=== PATIENT | male | born 1985 | race Caucasian/White ===

== ENCOUNTER 2018-06-15 16:49 | Emergency (ER) | payer MEDICARE, MEDICAID ==
[~2018-06-15] VITALS: Ht 180.3 cm; Wt 90.9 kg
[~2018-06-15 16:49] MED LIST: CLON2TAB PO; LAMO150T2 PO; PALI117D IM; TRIH2TAB3 PO
[2018-06-15 17:52] LABS: CLARITY,URINE CLEAR (Clear); COLOR,URINE STRAW (Yellow); GLUCOSE, URINE NEGATIVE (Neg); KETONES,URINE NEGATIVE (Neg); LEUKOCYTE ESTERASE ,URINE NEGATIVE (Neg); NITRITES, URINE NEGATIVE (Neg); OCCULT BLOOD,URINE NEGATIVE (Neg); PH,URINE 7.5 (4.8-8.0); PROTEIN,URINE NEGATIVE (Neg); UROBILINOGEN,URINE 0.2 E.U/dL (0.2-1.0)
[2018-06-15 17:57] LABS: UA COLLECTION TYPE CLN CATCH MIDSTREAM
[2018-06-15 18:04] LABS: URINE AMPHETAMINE SCREEN NEGATIVE (Neg); URINE BARBITUATE SCREEN NEGATIVE (Neg); URINE BENZODIAZEPINES SCREEN NEGATIVE (Neg); URINE CANNABINOID SCREEN POSITIVE (Neg); URINE COCAINE SCREEN NEGATIVE (Neg); URINE METHADONE SCREEN NEGATIVE (Neg); URINE OPIATE SCREEN NEGATIVE (Neg); URINE PHENCYCLIDINE SCREEN NEGATIVE (Neg)
[2018-06-15 19:28] LABS: BASOPHILS % (AUTO) 0.4 % (0-1); EOSINOPHILS % (AUTO) 0.4 % (0-6); HEMATOCRIT 41.9 % (42.0-52.0); HEMOGLOBIN 14.3 g/dl (14.0-17.9); LYMPHOCYTES # (AUTO) 1.4 X10'3 (1.1-4.8); LYMPHOCYTES % (AUTO) 24.4 % (21-51); MEAN CORPUSCULAR HEMOGLOBIN 30.7 PG (27.0-31.0); MEAN CORPUSCULAR HGB CONC 34.2 % (33.0-36.5); MEAN CORPUSCULAR VOLUME 89.7 FL (78-98); MEAN PLATELET VOLUME 8.8 FL (7.4-10.4); MONOCYTES # (AUTO) 0.3 X10'3 (0-0.9); MONOCYTES % (AUTO) 5.3 % (2-12); NEUTROPHILS % (AUTO) 69.5 % (42-75); PLATELET COUNT 202 X10'3 (140-440); RED BLOOD COUNT 4.67 X10'6 (4.70-6.10); RED CELL DISTRIBUTION WIDTH 13.4 % (11.5-14.5); WHITE BLOOD COUNT 5.8 X10'3 (4.5-11.0)
[2018-06-15 19:45] LABS: ALANINE AMINOTRANSFERASE 41 U/L (12-78); ALBUMIN 3.7 G/DL (3.4-5.0); ALBUMIN/GLOBULIN RATIO 1.3 (1.1-1.5); ALKALINE PHOSPHATASE 68 IU/L (46-116); ANION GAP 7 (8-16); ASPARTATE AMINO TRANSFERASE 25 U/L (10-37); BILIRUBIN,TOTAL 0.3 MG/DL (0.1-1.0); BLOOD UREA NITROGEN 6 MG/DL (7-18); BUN/CREATININE RATIO 5.6 (5.4-32.0); CALCIUM 8.8 MG/DL (8.5-10.1); CHLORIDE 107 MMOL/L (99-107); CREATININE 1.08 MG/DL (0.60-1.10); GLUCOSE 98 MG/DL (70-104); POTASSIUM 3.5 MMOL/L (3.5-5.1); SODIUM 142 MMOL/L (135-145); TOTAL CARBON DIOXIDE 27.7 MMOL/L (24-32); TOTAL PROTEIN 6.5 G/DL (6.4-8.2); eGFR 79 ML/MIN
[2018-06-15 19:53] LABS: ETHANOL < 0.010 GM/DL (0.0-0.010)
[2018-06-15] MEDS: clonazePAM 1mg tablet PO SCH (21:16)
[2018-06-15] MEDS ORDERED: potassium Cl 20 mEq SR tablet PO STA (23:23)
[2018-06-16 03:19] LABS: ALBUMIN 3.6 G/DL (3.4-5.0); ANION GAP 10 (8-16); BLOOD UREA NITROGEN 8 MG/DL (7-18); BUN/CREATININE RATIO 7.1 (5.4-32.0); CALCIUM 8.8 MG/DL (8.5-10.1); CHLORIDE 107 MMOL/L (99-107); CREATININE 1.12 MG/DL (0.60-1.10); GLUCOSE 91 MG/DL (70-104); POTASSIUM 3.9 MMOL/L (3.5-5.1); SODIUM 142 MMOL/L (135-145); TOTAL CARBON DIOXIDE 25.4 MMOL/L (24-32); eGFR 76 ML/MIN
[2018-06-16] MEDS: lamoTRIgine 100mg tablet PO SCH (08:11)
[2018-06-16] MEDS: trihexyphenidyl 2mg tablet PO SCH ×2 (08:11→20:44)
[2018-06-16] MEDS: nicotine 7mg patch - 24hr TD SCH (16:00)
[2018-06-16] MEDS: clonazePAM 1mg tablet PO SCH (20:44)
[2018-06-17 05:42] VITALS: BP 133/89
[2018-06-17] MEDS ORDERED: traZODone 50mg tablet PO PRN (06:15)
[2018-06-17] MEDS: trihexyphenidyl 2mg tablet PO SCH (08:17)
[2018-06-17] MEDS: lamoTRIgine 100mg tablet PO SCH (08:18)
[2018-06-17] MEDS: nicotine 7mg patch - 24hr TD SCH (08:20)
[2018-06-17] MEDS ORDERED: CLON-515 PO (13:51)
[2018-06-17] MEDS ORDERED: PALI234D IM (13:51)
[2018-06-17] MEDS ORDERED: TRIH2TAB3 PO (13:51)
[2018-06-17] MEDS ORDERED: PALI9TAB PO (14:17)
== END 2018-06-17 13:05 ==
LOC: ER 16:49
DX: F32.9 Major depressive disorder, single episode, unspecified (principal); F41.9 Anxiety disorder, unspecified; G89.29 Other chronic pain; M54.9 Dorsalgia, unspecified; Z88.0 Allergy status to penicillin
CPT/HCPCS: 36415; 80048; 80053; 80305; 80320; 81003; 84443; 85025; 99285

== ENCOUNTER 2018-06-17 11:21 | Inpatient (IN) | payer MEDICARE, MEDICAID ==
[~2018-06-17] VITALS: Ht 180.3 cm; Wt 93.5 kg
[2018-06-17] MEDS ORDERED: CLON-515 PO (13:51)
[2018-06-17] MEDS ORDERED: TRIH2TAB3 PO (13:51)
[2018-06-17] MEDS ORDERED: PALI234D IM (13:51)
[2018-06-17] MEDS ORDERED: PALI9TAB PO (14:17)
[2018-06-17 16:38] VITALS: BP 133/82
[2018-06-17] MEDS ORDERED: magnesium hydroxide 30ml (MOM) UD suspension PO PRN (17:55)
[2018-06-17] MEDS: nicotine 7mg patch - 24hr TD SCH (18:04)
[2018-06-17 19:59] VITALS: BP 133/85
[2018-06-17] MEDS ORDERED: clonazePAM 1mg tablet PO ONE (20:50)
[2018-06-17] MEDS ORDERED: traZODone 50mg tablet PO ONE (21:00)
[2018-06-17] MEDS ORDERED: traZODone 50mg tablet PO SCH (21:00)
[2018-06-17] MEDS ORDERED: clonazePAM 1mg tablet PO SCH (21:00)
[2018-06-17] MEDS: trihexyphenidyl HCL 5 MG tablet PO SCH (21:20)
[2018-06-17] MEDS: acetaminophen 325mg tablet PO PRN (21:27)
[2018-06-18 07:42] LABS: CHOL/HDL RATIO 4.2 (0.00-4.99); CHOLESTEROL 174 MG/DL (0-200); HDL CHOLESTEROL 41 MG/DL (35-60); LDL CHOLESTEROL 97 MG/DL (50-100); TRIGLYCERIDES 299 MG/DL (20-135)
[2018-06-18 08:00] VITALS: BP 109/64
[2018-06-18 08:02] LABS: HEMOGLOBIN A1C 5.2 % (4.5-6.2)
[2018-06-18] MEDS: lamoTRIgine 100mg tablet PO SCH (08:24)
[2018-06-18] MEDS: trihexyphenidyl HCL 5 MG tablet PO SCH ×3 (08:24→21:31)
[2018-06-18] MEDS: nicotine 7mg patch - 24hr TD SCH (10:10)
[2018-06-18 19:00] VITALS: BP 100/70
[2018-06-18] MEDS ORDERED: traZODone 50mg tablet PO SCH (21:00)
[2018-06-18] MEDS: clonazePAM 1mg tablet PO SCH (21:31)
[2018-06-18] MEDS: acetaminophen 325mg tablet PO PRN (21:33)
[2018-06-19] MEDS: lamoTRIgine 100mg tablet PO SCH (08:19)
[2018-06-19] MEDS: nicotine 7mg patch - 24hr TD SCH (08:19)
[2018-06-19] MEDS: trihexyphenidyl HCL 5 MG tablet PO SCH ×3 (08:20→20:23)
[2018-06-19 08:29] VITALS: BP 108/72
[2018-06-19 19:00] VITALS: BP 132/81
[2018-06-19] MEDS: clonazePAM 1mg tablet PO SCH (20:20)
[2018-06-19] MEDS: traZODone 150mg tablet PO SCH (20:20)
[2018-06-19] MEDS: acetaminophen 325mg tablet PO PRN (21:11)
[2018-06-20] MEDS: trihexyphenidyl HCL 5 MG tablet PO SCH ×3 (07:30→21:45)
[2018-06-20] MEDS: PALIPERIDONE 3 MG TAB.ER.24 PO SCH (07:30)
[2018-06-20] MEDS: nicotine 7mg patch - 24hr TD SCH (07:30)
[2018-06-20] MEDS: lamoTRIgine 100mg tablet PO SCH (07:30)
[2018-06-20 08:00] VITALS: BP 112/90
[2018-06-20] MEDS: acetaminophen 325mg tablet PO PRN (18:45)
[2018-06-20 19:00] VITALS: BP 131/89
[2018-06-20] MEDS: clonazePAM 1mg tablet PO SCH (21:44)
[2018-06-20] MEDS: traZODone 150mg tablet PO SCH (21:44)
[2018-06-21 08:00] VITALS: BP 108/64
[2018-06-21] MEDS: lamoTRIgine 100mg tablet PO SCH (08:22)
[2018-06-21] MEDS: PALIPERIDONE 3 MG TAB.ER.24 PO SCH (08:22)
[2018-06-21] MEDS: trihexyphenidyl HCL 5 MG tablet PO SCH ×3 (08:23→20:48)
[2018-06-21] MEDS: nicotine 7mg patch - 24hr TD SCH (08:27)
[2018-06-21 19:26] VITALS: BP 124/81
[2018-06-21] MEDS: traZODone 150mg tablet PO SCH (20:48)
[2018-06-21] MEDS: clonazePAM 1mg tablet PO SCH (20:48)
[2018-06-21] MEDS: acetaminophen 325mg tablet PO PRN (20:55)
[2018-06-22 08:00] VITALS: BP 112/70
[2018-06-22] MEDS: lamoTRIgine 100mg tablet PO SCH (08:16)
[2018-06-22] MEDS: PALIPERIDONE 3 MG TAB.ER.24 PO SCH (08:16)
[2018-06-22] MEDS: nicotine 7mg patch - 24hr TD SCH (08:17)
[2018-06-22] MEDS: trihexyphenidyl HCL 5 MG tablet PO SCH ×3 (08:17→21:21)
[2018-06-22 20:00] VITALS: BP 127/80
[2018-06-22] MEDS: traZODone 150mg tablet PO SCH (21:21)
[2018-06-22] MEDS: clonazePAM 1mg tablet PO SCH (21:21)
[2018-06-22] MEDS: mag hydrox/Alum hydrox/simeth 30ml oral suspension PO PRN (21:24)
[2018-06-23] MEDS ORDERED: temazepam 15mg capsule PO ONE ×2 (00:10→01:40)
[2018-06-23] MEDS: acetaminophen 325mg tablet PO PRN ×2 (01:41→22:58)
[2018-06-23 08:00] VITALS: BP 117/73
[2018-06-23] MEDS: PALIPERIDONE 3 MG TAB.ER.24 PO SCH (08:16)
[2018-06-23] MEDS: lamoTRIgine 100mg tablet PO SCH (08:16)
[2018-06-23] MEDS: trihexyphenidyl HCL 5 MG tablet PO SCH ×3 (08:17→20:29)
[2018-06-23] MEDS: nicotine 7mg patch - 24hr TD SCH (08:18)
[2018-06-23 20:11] VITALS: BP 121/69
[2018-06-23] MEDS: clonazePAM 1mg tablet PO SCH (20:30)
[2018-06-23] MEDS: traZODone 50mg tablet PO SCH (20:30)
[2018-06-23] MEDS ORDERED: lamoTRIgine 25mg tablet PO SCH (21:00)
[2018-06-23] MEDS: mag hydrox/Alum hydrox/simeth 30ml oral suspension PO PRN (23:00)
[2018-06-24 08:00] VITALS: BP 110/65
[2018-06-24] MEDS ORDERED: PALIPERIDONE 3 MG TAB.ER.24 PO SCH (08:00)
[2018-06-24] MEDS: trihexyphenidyl HCL 5 MG tablet PO SCH ×3 (08:10→21:13)
[2018-06-24] MEDS: lamoTRIgine 100mg tablet PO SCH ×2 (08:12→21:13)
[2018-06-24] MEDS: nicotine 7mg patch - 24hr TD SCH (08:15)
[2018-06-24 19:09] VITALS: BP 120/68
[2018-06-24] MEDS: PALIPERIDONE 3 MG TAB.ER.24 PO SCH (21:14)
[2018-06-24] MEDS: acetaminophen 325mg tablet PO PRN (21:15)
[2018-06-24] MEDS: mag hydrox/Alum hydrox/simeth 30ml oral suspension PO PRN (21:15)
[2018-06-24] MEDS: clonazePAM 1mg tablet PO SCH (21:17)
[2018-06-24] MEDS: traZODone 50mg tablet PO SCH (21:17)
[2018-06-25] MEDS ORDERED: temazepam 15mg capsule PO ONE ×2 (00:50→21:00)
[2018-06-25] MEDS: trihexyphenidyl HCL 5 MG tablet PO SCH ×3 (07:58→20:45)
[2018-06-25] MEDS: nicotine 7mg patch - 24hr TD SCH (07:58)
[2018-06-25] MEDS: lamoTRIgine 100mg tablet PO SCH ×2 (07:59→20:44)
[2018-06-25 08:00] VITALS: BP 106/63
[2018-06-25] MEDS: mag hydrox/Alum hydrox/simeth 30ml oral suspension PO PRN ×2 (17:50→22:14)
[2018-06-25 19:00] VITALS: BP 119/75
[2018-06-25] MEDS: acetaminophen 325mg tablet PO PRN (19:17)
[2018-06-25] MEDS: PALIPERIDONE 3 MG TAB.ER.24 PO SCH (20:44)
[2018-06-25] MEDS: zolpidem 5mg tablet PO SCH (20:44)
[2018-06-25] MEDS: clonazePAM 1mg tablet PO SCH (20:45)
[2018-06-26] MEDS: nicotine 7mg patch - 24hr TD SCH (07:57)
[2018-06-26] MEDS: lamoTRIgine 100mg tablet PO SCH ×2 (07:58→20:59)
[2018-06-26] MEDS: trihexyphenidyl HCL 5 MG tablet PO SCH ×3 (07:58→20:57)
[2018-06-26 08:59] VITALS: BP 107/63
[2018-06-26 19:00] VITALS: BP 122/83
[2018-06-26] MEDS: zolpidem 5mg tablet PO SCH (20:57)
[2018-06-26] MEDS: clonazePAM 1mg tablet PO SCH (20:58)
[2018-06-26] MEDS: PALIPERIDONE 3 MG TAB.ER.24 PO SCH (20:59)
[2018-06-26] MEDS: mag hydrox/Alum hydrox/simeth 30ml oral suspension PO PRN (22:11)
[2018-06-26] MEDS: acetaminophen 325mg tablet PO PRN (22:11)
[2018-06-27 08:00] VITALS: BP 115/70
[2018-06-27] MEDS: trihexyphenidyl HCL 5 MG tablet PO SCH ×3 (08:05→21:21)
[2018-06-27] MEDS: lamoTRIgine 100mg tablet PO SCH ×2 (08:06→21:21)
[2018-06-27] MEDS: nicotine 7mg patch - 24hr TD SCH (08:10)
[2018-06-27 19:00] VITALS: BP 120/78
[2018-06-27] MEDS: clonazePAM 1mg tablet PO SCH (21:21)
[2018-06-27] MEDS: zolpidem 5mg tablet PO SCH (21:21)
[2018-06-27] MEDS: PALIPERIDONE 3 MG TAB.ER.24 PO SCH (21:21)
[2018-06-27] MEDS: mag hydrox/Alum hydrox/simeth 30ml oral suspension PO PRN (21:22)
[2018-06-28 08:00] VITALS: BP 115/64
[2018-06-28] MEDS: trihexyphenidyl HCL 5 MG tablet PO SCH (08:06)
[2018-06-28] MEDS: nicotine 7mg patch - 24hr TD SCH (08:06)
[2018-06-28] MEDS: lamoTRIgine 100mg tablet PO SCH (08:06)
[2018-06-28] MEDS ORDERED: LAMO150T PO (08:39)
[2018-06-28] MEDS ORDERED: ZOLP10TA PO (08:39)
[2018-06-28] MEDS ORDERED: CLON-515 PO (08:39)
[2018-06-28] MEDS ORDERED: TRIH5TAB2 PO (08:39)
[2018-06-28] MEDS ORDERED: LAMO100T89 PO (08:39)
[2018-06-28] MEDS ORDERED: PALI3TAB5 PO (08:39)
[2018-06-28] MEDS ORDERED: NICO-630 TD (08:39)
[2018-07-15] MEDS ORDERED: paliperidone palmitate inj 234 MG/1.5 ML SYRINGE IM SCH (08:00)
== END 2018-06-28 10:50 | disposition home or self-care (01) | DRG 885 ==
LOC: ADULT MH 11:21
PROVIDERS: ADMIT Psychiatry & Neurology Psychiatry; ATTEND Psychiatry & Neurology Psychiatry
DX: F25.0 Schizoaffective disorder, bipolar type (principal); R45.851 Suicidal ideations; F12.90 Cannabis use, unspecified, uncomplicated; F17.210 Nicotine dependence, cigarettes, uncomplicated; F41.9 Anxiety disorder, unspecified; G47.21 Circadian rhythm sleep disorder, delayed sleep phase type; G47.00 Insomnia, unspecified; E66.3 Overweight; F11.90 Opioid use, unspecified, uncomplicated; G89.29 Other chronic pain; M54.9 Dorsalgia, unspecified; Z59.0 Homelessness; Z72.89 Other problems related to lifestyle; Z71.41 Alcohol abuse counseling and surveillance of alcoholic; Z81.8 Family history of other mental and behavioral disorders; Z68.28 Body mass index [BMI] 28.0-28.9, adult
CPT/HCPCS: 36415; 80061; 83036; 87070

== ENCOUNTER 2018-12-08 09:38 | Emergency (ER) | payer MEDICARE, MEDICAID ==
[~2018-12-08] VITALS: Ht 180.3 cm; Wt 93.2 kg
[~2018-12-08 09:38] MED LIST changes: +CLON-515 PO; -CLON2TAB PO; +LAMO100T89 PO; +LAMO150T PO; -LAMO150T2 PO; +NICO-630 TD; -PALI117D IM; +PALI234D IM; +PALI3TAB5 PO; -TRIH2TAB3 PO; +TRIH5TAB2 PO; +ZOLP10TA PO
[2018-12-08 10:04] VITALS: BP 122/84
[2018-12-08] MEDS ORDERED: CEPH-572 PO (11:54)
[2018-12-08] MEDS ORDERED: SULF1TAB49 PO (11:54)
== END 2018-12-08 12:06 | disposition home or self-care (01) ==
LOC: ER 09:39
DX: L02.11 Cutaneous abscess of neck (principal); L03.221 Cellulitis of neck; G89.29 Other chronic pain; Z98.890 Other specified postprocedural states; Z88.0 Allergy status to penicillin; Z79.899 Other long term (current) drug therapy
CPT/HCPCS: 99283

== ENCOUNTER 2019-02-07 10:02 | Emergency (ER) | payer MEDICARE, MEDICAID ==
[~2019-02-07] VITALS: Ht 180.3 cm; Wt 88.6 kg
--- NOTE | 2019-02-07 10:24 | NUR ---
PT HAD RX FOR 30 NORCO THAT WAS FILLED FRIDAY THAT IS NOW COMPLETELY GONE, PER HIS MOTHER. PT STATES HE WAS TAKING THEM FOR A SORE THROAT
--- NOTE | 2019-02-07 10:25 | NUR ---
JOHN WAS PRESCRIBED BY DR PARRISH (DENTIST) FOR A BAD TOOTH. PT STATES HE HASN'T SLEPT IN A LONG TIME
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
[2019-02-07] MEDS ORDERED: LORazepam 2 mg/ml vial IM ONE (10:55)
[2019-02-07] MEDS ORDERED: diphenhydrAMINE 50 mg/ml inj IM ONE (10:55)
[2019-02-07] MEDS ORDERED: haloperidol lactate 5mg/ml inj IM ONE (10:55)
[2019-02-07 11:45] LABS: BASOPHILS % (AUTO) 0.6 % (0-1); EOSINOPHILS # (AUTO) 0.1 X10'3 (0-0.9); EOSINOPHILS % (AUTO) 1.1 % (0-6); HEMOGLOBIN 13.8 g/dl (14.0-17.9); LYMPHOCYTES # (AUTO) 1.4 X10'3 (1.1-4.8); LYMPHOCYTES % (AUTO) 19.1 % (21-51); MEAN CORPUSCULAR HEMOGLOBIN 30.8 PG (27.0-31.0); MEAN CORPUSCULAR HGB CONC 33.6 g/dL (33.0-36.5); MEAN CORPUSCULAR VOLUME 91.8 FL (78-98); MEAN PLATELET VOLUME 8.3 FL (7.4-10.4); MONOCYTES # (AUTO) 0.8 X10'3 (0-0.9); NEUTROPHILS # (AUTO) 4.9 X10'3 (1.8-7.7); NEUTROPHILS % (AUTO) 68.2 % (42-75); PLATELET COUNT 190 X10'3 (140-440); RED BLOOD COUNT 4.47 X10'6 (4.70-6.10); RED CELL DISTRIBUTION WIDTH 14.1 % (11.5-14.5); WHITE BLOOD COUNT 7.2 X10'3 (4.5-11.0)
[2019-02-07 12:05] LABS: ALANINE AMINOTRANSFERASE 34 U/L (12-78); ALBUMIN 3.8 G/DL (3.4-5.0); ALBUMIN/GLOBULIN RATIO 1.5 (1.1-1.5); ALKALINE PHOSPHATASE 54 IU/L (46-116); ANION GAP 9 (8-16); ASPARTATE AMINO TRANSFERASE 29 U/L (10-37); BILIRUBIN,TOTAL 0.3 MG/DL (0.1-1.0); BLOOD UREA NITROGEN 15 MG/DL (7-18); BUN/CREATININE RATIO 7.9 (5.4-32.0); CALCIUM 8.6 MG/DL (8.5-10.1); CHLORIDE 106 MMOL/L (99-107); CREATININE 1.89 MG/DL (0.60-1.10); GLUCOSE 91 MG/DL (70-104); POTASSIUM 3.7 MMOL/L (3.5-5.1); SODIUM 139 MMOL/L (135-145); TOTAL CARBON DIOXIDE 24.4 MMOL/L (24-32); TOTAL PROTEIN 6.3 G/DL (6.4-8.2); eGFR 41 ML/MIN
[2019-02-07 12:14] LABS: ACETAMINOPHEN < 2.0 UG/ML (10-30); ETHANOL < 0.010 GM/DL (0.0-0.010)
--- NOTE | 2019-02-07 12:49 | NUR ---
Pt's mom Radha Samson [phone] asked to be notified of any changes or movement to a facility. Mom took all Pt's belongings home.
--- NOTE | 2019-02-07 13:15 | NUR ---
RELIEVING RN FOR LUNCH, PT IS SLEEPING, RESP EVEN AND UNLABORED
[2019-02-07 16:46] LABS: CLARITY,URINE SLIGHTLY CLOUDY (Clear); COLOR,URINE STRAW (Yellow); GLUCOSE, URINE NEGATIVE (Neg); KETONES,URINE NEGATIVE (Neg); LEUKOCYTE ESTERASE ,URINE NEGATIVE (Neg); NITRITES, URINE NEGATIVE (Neg); OCCULT BLOOD,URINE NEGATIVE (Neg); PH,URINE 5.5 (4.8-8.0); PROTEIN,URINE NEGATIVE (Neg); UROBILINOGEN,URINE 0.2 E.U/dL (0.2-1.0)
[2019-02-07 16:52] LABS: UA COLLECTION TYPE CLN CATCH MIDSTREAM
[2019-02-07 16:59] LABS: BACTERIA,URINE FEW /HPF (Neg); MUCUS STRANDS FEW /LPF (Neg); RBC,URINE NONE SEEN /HPF (0-2); SPERM FEW /HPF (NEGATIVE); SQUAMOUS EPITHELIAL CELL,UR FEW /LPF (FEW); URINE AMPHETAMINE SCREEN POSITIVE (Neg); URINE BARBITUATE SCREEN NEGATIVE (Neg); URINE BENZODIAZEPINES SCREEN NEGATIVE (Neg); URINE CANNABINOID SCREEN POSITIVE (Neg); URINE COCAINE SCREEN NEGATIVE (Neg); URINE METHADONE SCREEN NEGATIVE (Neg); URINE OPIATE SCREEN POSITIVE (Neg); URINE PHENCYCLIDINE SCREEN NEGATIVE (Neg)
--- NOTE | 2019-02-07 19:12 | NUR ---
DELIVERED MEAL TRAY TO PT. PT SITTING UPRIGHT EATING. NO DISTRESS NOTED.
--- NOTE | 2019-02-07 21:44 | NUR ---
Packet faxed to [facility]. Confirmed receipt of packet with Gene @ [place] office.
--- NOTE | 2019-02-08 07:00 | NUR ---
Rec patient from main ER to bed 25. In conversation with patient he denies being suicidal or having auditory hallucinations. States he came here with his mom for a sore throat and doesnt know why he is still here. Discussed the reasons why he is here with him, Discussed rules and behavioral expectations of the unit. Pt seems agreeable at this time
[2019-02-08] MEDS ORDERED: OMEP40CA37 PO (07:30)
[2019-02-08] MEDS ORDERED: LAMO100T89 PO ×2 (07:43)
[2019-02-08] MEDS ORDERED: CLON2TAB PO (07:43)
[2019-02-08] MEDS ORDERED: NICO-630 TOP (07:46)
[2019-02-08] MEDS ORDERED: PALI3TAB PO (07:46)
[2019-02-08] MEDS ORDERED: ZOLP10TA PO (07:46)
[2019-02-08] MEDS ORDERED: TRIH2TAB3 PO (07:48)
--- NOTE | 2019-02-08 10:22 | NUR ---
schc seeing patient
[2019-02-08] MEDS: lamoTRIgine 100mg tablet PO SCH ×2 (10:36→20:19)
[2019-02-08] MEDS: LORazepam 1 MG tablet PO PRN (12:26)
[2019-02-08] MEDS: trihexyphenidyl 2mg tablet PO SCH ×2 (12:26→20:30)
--- NOTE | 2019-02-08 18:50 | NUR ---
rcd pt calm and cooperative,denies needs right now.
--- NOTE | 2019-02-08 20:03 | NUR ---
pt asleep in bed,breathing even and unlaboured.
[2019-02-08] MEDS: PALIPERIDONE 3 MG TAB.ER.24 PO SCH (20:19)
--- NOTE | 2019-02-08 20:30 | NUR ---
pt ambulatory to the bathroom.pm care done.
--- NOTE | 2019-02-08 20:39 | NUR ---
as per pt, has an open wound on his private area.allowed male jeremías saha to look at it.as per yifan pt has a healing abrasion on his genital area.
[2019-02-08] MEDS ORDERED: CLONAZEPAM PO SCH (21:00)
[2019-02-08] MEDS ORDERED: clonazePAM 1mg tablet PO SCH (21:00)
--- NOTE | 2019-02-08 22:03 | NUR ---
pt asleep in bed,breathing even and unlaboured.
--- NOTE | 2019-02-08 23:00 | NUR ---
pt woke up agitated and kept asking why he is here and wanted to live coz he needs to see his dentist tomorrow.explained the reason why he is here and wait until morning.as per pt he needs all the meds that he can to help him sleep.ambien 10 mg given.
[2019-02-08] MEDS: zolpidem 5mg tablet PO PRN (23:06)
--- NOTE | 2019-02-09 02:41 | NUR ---
pt sleeping on his left side.breathing even and unlaboured.
--- NOTE | 2019-02-09 04:45 | NUR ---
pt sleeping in bed,breathing even and unlaboured.
--- NOTE | 2019-02-09 06:56 | NUR ---
Assumed care. Pt sleeping at this time.
[2019-02-09] MEDS ORDERED: lamoTRIgine 100mg tablet PO SCH (08:00)
[2019-02-09] MEDS: trihexyphenidyl 2mg tablet PO SCH ×3 (08:20→20:39)
[2019-02-09] MEDS: pantoprazole 40mg Tablet.DR PO SCH (08:20)
[2019-02-09] MEDS: lamoTRIgine 100mg tablet PO SCH ×2 (08:20→20:39)
[2019-02-09] MEDS: PALIPERIDONE 3 MG TAB.ER.24 PO SCH ×2 (08:20→20:39)
[2019-02-09] MEDS: LORazepam 1 MG tablet PO PRN (08:20)
[2019-02-09] MEDS: nicotine 7mg patch - 24hr TD SCH (08:21)
--- NOTE | 2019-02-09 09:00 | NUR ---
Pt up to bathroom. Talking things that don't make sense.
--- NOTE | 2019-02-09 11:22 | NUR ---
Sleeping on left side. Respirations even and unlabored.
--- NOTE | 2019-02-09 12:12 | NUR ---
pt mom at bedside visiting. interacting well.
--- NOTE | 2019-02-09 14:25 | NUR ---
Pt sleeping, no distress noted.
--- NOTE | 2019-02-09 19:00 | NUR ---
Patient sleeping soundly. eyes closed and respirations steady.Bed low/locked.
--- NOTE | 2019-02-09 20:30 | NUR ---
Snacks provided per patient request.
--- NOTE | 2019-02-09 21:20 | NUR ---
Patient sleeping on his right side. All snacks eaten.
[2019-02-09] MEDS: zolpidem 5mg tablet PO PRN (22:44)
--- NOTE | 2019-02-09 22:50 | NUR ---
Patient administered ambien for sleep per pt. request.
--- NOTE | 2019-02-10 00:07 | NUR ---
Patient is currently sleeping on his left side. Eyes closed and breathing unlabored.
--- NOTE | 2019-02-10 01:35 | NUR ---
Patient continues to sleep. Eyes closed and respirations even and unlabored.
--- NOTE | 2019-02-10 03:26 | NUR ---
Patient continues to sleep. Has blanket pulled up over his head. Respirations are steady.
--- NOTE | 2019-02-10 05:20 | NUR ---
Patient continues sleeping. Has repositioned to his left side.
[2019-02-10] MEDS: nicotine 7mg patch - 24hr TD SCH (08:13)
[2019-02-10] MEDS: lamoTRIgine 100mg tablet PO SCH ×2 (08:13→20:43)
[2019-02-10] MEDS: PALIPERIDONE 3 MG TAB.ER.24 PO SCH ×2 (08:13→20:43)
[2019-02-10] MEDS: pantoprazole 40mg Tablet.DR PO SCH (08:14)
[2019-02-10] MEDS: trihexyphenidyl 2mg tablet PO SCH ×3 (08:14→20:43)
[2019-02-10] MEDS ORDERED: traMADol 50MG tablet PO ONE (11:55)
[2019-02-10] MEDS: zolpidem 5mg tablet PO PRN (20:43)
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
--- NOTE | 2019-02-10 22:33 | NUR ---
pt resting supine in bed. self-positions frequently. no distress noted. will continue to monitor.
--- NOTE | 2019-02-11 00:54 | NUR ---
pt ambulatory to restroom and back to bed. no needs at this time.
--- NOTE | 2019-02-11 03:53 | NUR ---
pt ambulatory to restroom and back to bed
--- NOTE | 2019-02-11 05:36 | NUR ---
morning vitals taken. pt has slept throught the evening without incident.
[2019-02-11 05:49] VITALS: BP 124/79
--- NOTE | 2019-02-11 06:40 | NUR ---
Patient sleeping on left side. No distress observed. Continue to monitor.
[2019-02-11] MEDS ORDERED: ibuprofen tablet 400 MG TABLET PO PRN (06:55)
[2019-02-11] MEDS: PALIPERIDONE 3 MG TAB.ER.24 PO SCH (07:31)
[2019-02-11] MEDS: pantoprazole 40mg Tablet.DR PO SCH (07:31)
[2019-02-11] MEDS: lamoTRIgine 100mg tablet PO SCH (07:31)
[2019-02-11] MEDS: trihexyphenidyl 2mg tablet PO SCH ×2 (07:31→13:58)
[2019-02-11] MEDS: LORazepam 1 MG tablet PO PRN (07:38)
[2019-02-11] MEDS: nicotine 7mg patch - 24hr TD SCH (07:53)
--- NOTE | 2019-02-11 08:35 | NUR ---
Patient ate breakfast and wanted medication for anxiety and c/o tooth pain. Continue to monitor.
--- NOTE | 2019-02-11 10:30 | NUR ---
Alcira JIMENEZ, evaluating patient.
--- NOTE | 2019-02-11 10:40 | NUR ---
Patient sleeping on right side. No distress observed. Continue to monitor.
--- NOTE | 2019-02-11 14:22 | NUR ---
pt is in bed laying on his right side, no s/s of agitation observed. regular breathing present
[2019-02-11] MEDS ORDERED: TRAZ-251 PO (20:00)
[2019-03-08] MEDS ORDERED: paliperidone palmitate inj 234 MG/1.5 ML SYRINGE IM SCH (08:00)
== END 2019-02-11 16:30 ==
LOC: ER 10:02
DX: T40.602A Poisoning by unspecified narcotics, intentional self-harm, initial encounter (principal); R45.850 Homicidal ideations; F60.0 Paranoid personality disorder; R44.0 Auditory hallucinations; J02.9 Acute pharyngitis, unspecified; F11.90 Opioid use, unspecified, uncomplicated; R94.6 Abnormal results of thyroid function studies; G89.29 Other chronic pain; Z98.890 Other specified postprocedural states; Z88.0 Allergy status to penicillin; Z79.899 Other long term (current) drug therapy; Y92.89 Other specified places as the place of occurrence of the external cause
CPT/HCPCS: 36415; 80053; 80305; 80320; 80329; 81001; 84443; 85025; 96372; 99285; J1200; J1630; J2060

== ENCOUNTER 2020-04-24 12:49 | Emergency (ER) | payer MEDICARE, MEDICAID ==
[~2020-04-24] VITALS: Ht 180.3 cm; Wt 90.9 kg
[~2020-04-24 12:49] MED LIST changes: -CLON-515 PO; +LAMO100T PO; -LAMO100T89 PO; -LAMO150T PO; -NICO-630 TD; +Non-Formulary TP; +OMEP40CA13 PO; +PALI3TAB PO; -PALI3TAB5 PO; +TRAZ-256 PO; +TRIH2TAB3 PO; -TRIH5TAB2 PO; -ZOLP10TA PO
[2020-04-24 13:25] LABS: BASOPHILS % (AUTO) 0.4 % (0-1); EOSINOPHILS % (AUTO) 0.2 % (0-6); HEMATOCRIT 40.1 % (42.0-52.0); HEMOGLOBIN 13.6 g/dl (14.0-17.9); LYMPHOCYTES # (AUTO) 0.9 X10'3 (1.1-4.8); LYMPHOCYTES % (AUTO) 11.1 % (21-51); MEAN CORPUSCULAR HEMOGLOBIN 30.4 PG (27.0-31.0); MEAN CORPUSCULAR HGB CONC 33.9 g/dL (33.0-36.5); MEAN CORPUSCULAR VOLUME 89.7 FL (78-98); MEAN PLATELET VOLUME 8.1 FL (7.4-10.4); MONOCYTES # (AUTO) 0.6 X10'3 (0-0.9); MONOCYTES % (AUTO) 7.2 % (2-12); NEUTROPHILS # (AUTO) 6.4 X10'3 (1.8-7.7); NEUTROPHILS % (AUTO) 81.1 % (42-75); PLATELET COUNT 190 X10'3 (140-440); RED BLOOD COUNT 4.47 X10'6 (4.70-6.10); RED CELL DISTRIBUTION WIDTH 13.9 % (11.5-14.5); WHITE BLOOD COUNT 7.9 X10'3 (4.5-11.0)
[2020-04-24] MEDS ORDERED: clonazePAM 1mg tablet PO ONE (13:25)
[2020-04-24 13:41] LABS: ALANINE AMINOTRANSFERASE 51 U/L (12-78); ALBUMIN 3.9 G/DL (3.4-5.0); ALBUMIN/GLOBULIN RATIO 1.3 (1.1-1.5); ALKALINE PHOSPHATASE 62 IU/L (46-116); ANION GAP 10 (8-16); ASPARTATE AMINO TRANSFERASE 44 U/L (10-37); BILIRUBIN,TOTAL 0.8 MG/DL (0.1-1.0); BLOOD UREA NITROGEN 10 MG/DL (7-18); CALCIUM 8.1 MG/DL (8.5-10.1); CHLORIDE 93 MMOL/L (99-107); CREATININE 0.91 MG/DL (0.60-1.10); GLUCOSE 128 MG/DL (70-104); POTASSIUM 3.3 MMOL/L (3.5-5.1); SODIUM 128 MMOL/L (135-145); TOTAL CARBON DIOXIDE 24.6 MMOL/L (24-32); TOTAL PROTEIN 6.8 G/DL (6.4-8.2); eGFR > 90 ML/MIN
[2020-04-24 13:49] LABS: CLARITY,URINE CLEAR (Clear); COLOR,URINE STRAW (Yellow); GLUCOSE, URINE NEGATIVE (Neg); KETONES,URINE TRACE mg/dl (Neg); LEUKOCYTE ESTERASE ,URINE NEGATIVE (Neg); NITRITES, URINE NEGATIVE (Neg); OCCULT BLOOD,URINE NEGATIVE (Neg); PROTEIN,URINE NEGATIVE (Neg); UROBILINOGEN,URINE 0.2 E.U/dL (0.2-1.0)
[2020-04-24 13:49] LABS: ETHANOL < 0.010 GM/DL (0.0-0.010)
[2020-04-24 13:52] LABS: URINE AMPHETAMINE SCREEN POSITIVE (Neg); URINE BARBITUATE SCREEN NEGATIVE (Neg); URINE BENZODIAZEPINES SCREEN NEGATIVE (Neg); URINE CANNABINOID SCREEN POSITIVE (Neg); URINE COCAINE SCREEN NEGATIVE (Neg); URINE METHADONE SCREEN NEGATIVE (Neg); URINE OPIATE SCREEN NEGATIVE (Neg); URINE PHENCYCLIDINE SCREEN NEGATIVE (Neg)
[2020-04-24 13:53] LABS: UA COLLECTION TYPE VOIDED
[2020-04-24] MEDS ORDERED: potassium Cl 20 mEq SR tablet PO STA (13:53)
[2020-04-24] MEDS ORDERED: clonazePAM 1mg tablet ONE (14:01)
[2020-04-24] MEDS ORDERED: potassium Cl 20 mEq SR tablet ONE (14:04)
[2020-04-24] MEDS ORDERED: NO HOME MEDS (14:09)
--- NOTE | 2020-04-24 15:43 | NUR ---
PT WALKED OVER FROM ROOM 15 TO OVERFLOW 21 WITH TECH
--- NOTE | 2020-04-24 16:00 | NUR ---
PT IS SLEEPING
--- NOTE | 2020-04-24 18:15 | NUR ---
PT IS RESTING
--- NOTE | 2020-04-24 18:50 | NUR ---
VESNA JIMENEZ RN, COMPLETED THE 5150: GD, DTS, DTO. HIS PROGRESS NOTE IS NOW PLACED IN CHART.
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
--- NOTE | 2020-04-24 21:07 | NUR ---
PT UP TO BR. AMBULATING WITH STEADY GAIT. REPORTS NO NEEDS AT THIS TIME. RETURNED TO HIS BED, NO LYING ON HIS RIGHT SIDE WITH BLANKETS COVERING TO HIS SHOUDERS. SITTER AND RN WITHIN VIEW OF PT AAT.
--- NOTE | 2020-04-24 23:22 | NUR ---
PT REMAINS ASLEEP. LYING ON HIS LEFT SIDE WITH BLANKETS COVERING TO HIS SHOULDERS. SITTER AND RN WITHIN VIEW OF PT AAT.
--- NOTE | 2020-04-25 01:16 | NUR ---
BREAKING PRIMARY RN, PT ASLEEP, RR EVEN AND UNLABORED, WILL CONTINUE TO MONITOR
--- NOTE | 2020-04-25 02:06 | NUR ---
PT REMAINS ASLEEP, LYING ON HIS LEFT SIDE WITH BLANKETS COVERING TO HIS SHOUDERS. RR14 AND UNLABORED. SITTER AND RN WITHIN VIEW AAT.
--- NOTE | 2020-04-25 04:24 | NUR ---
PT REMAINS ASLEEP.
--- NOTE | 2020-04-25 05:10 | NUR ---
Pt up to go to br. He asked "are we getting any food today". Updated that it is 5 am and that breakfast is here at 7:30. pt returned to his bed, lay down and pulled blankets to his shouders.
[2020-04-25 05:13] VITALS: BP 104/66
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
--- NOTE | 2020-04-25 06:20 | NUR ---
Received report from Betzy TURK, [facility].
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
--- NOTE | 2020-04-25 08:00 | NUR ---
Clarified with Dr. Aguirre if he wanted to follow up on the K+ level. Last level was 3.3 and we had administered [address] Aguirre states we don't need to follow up on the K+ blood level.
--- NOTE | 2020-04-25 08:45 | NUR ---
Patient resting in bed, performed assessment and had discussion with patient.
--- NOTE | 2020-04-25 09:35 | NUR ---
Patient resting with eyes closed.
--- NOTE | 2020-04-25 09:51 | NUR ---
Returned phone call to Radha and left voicemail re: placement.
--- NOTE | 2020-04-25 10:34 | NUR ---
Spoke to Radha TURK for nurse to nurse report for placement. Expecting paperwork via fax to fill out and send back to them.
--- NOTE | 2020-04-25 11:10 | NUR ---
Received call from [facility] stating [facility] accepted patient at [address] Buenrostro. Will be picked up at 1300 to arrive by 1600.
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
--- NOTE | 2020-04-25 13:18 | NUR ---
Patient sleeping, no needs noted at this time.
--- NOTE | 2020-04-25 13:28 | NUR ---
1325 [facility] arrived at this time to collect patient and transport to [facility] in [place]. This nurse called Radha JAMES casing mixer and was waiting on hold to speak to her to inquire/clarify if she had spoken to Dr. Aguirre since he had returned from lunch re: patient discharge process in ED overflow. Since this nurse is not as familiar with ED overflow transfer/discharge process as floor discharging this nurse was clarifying protocol prior to depart. While nurse was on the phone, [employer] woke patient up and handed patient his clothing, making him aware that [facility] was here. This nurse witnessed patient willingly sit up in bed and dump clothing onto bed and begin to take off shirt and then hesitated, it appeared he wanted privacy to get dressed. He did not appear to be a flight risk since patient had rested comfortably in bed all day without any evidence that he wanted to leave. Sarah made this nurse aware that she was going to grab a sack lunch to take on the road for the patient and RN was still waiting on hold but acknowledged that she was going to grab his food. [facility] transport person was waiting directly in front of this nurse while I waiting on hold to find out more information. This nurse communicated to transport person that it'll just be a second and that this nurse was just needing to clarify finishing discharge protocol before patient discharged/transported with her. 1327 Next thing this nurse sees patient walk casually behind ocean room dividing screen. This nurse says to [facility] transport person that patient walked behind screen, then she runs after patient and asks him to come back and get dressed back in his room space. Patient denies it and states "I'm going to get dressed out here" per [facility] person and continues out of site. Then this nurse pages security that patient has eloped into lobby while running after patient.
== END 2020-04-25 13:28 ==
LOC: ER 12:50
DX: F20.9 Schizophrenia, unspecified (principal); F31.9 Bipolar disorder, unspecified; F23 Brief psychotic disorder; G89.29 Other chronic pain; F17.200 Nicotine dependence, unspecified, uncomplicated; F15.90 Other stimulant use, unspecified, uncomplicated; Z72.89 Other problems related to lifestyle; Z88.0 Allergy status to penicillin
CPT/HCPCS: 36415; 80053; 80305; 80320; 81003; 84443; 85025; 93005; 99285

== ENCOUNTER 2021-08-22 09:29 | Emergency (ER) | payer MEDICARE, MEDICAID ==
[~2021-08-22] VITALS: Ht 180.3 cm; Wt 79.7 kg
[~2021-08-22 09:29] MED LIST changes: -LAMO100T PO; +NO HOME MEDS; -Non-Formulary TP; -OMEP40CA13 PO; -PALI234D IM; -PALI3TAB PO; -TRAZ-256 PO; -TRIH2TAB3 PO
[2021-08-22 10:07] VITALS: BP 126/78
--- NOTE | 2021-08-22 10:22 | NUR ---
PATIENT SEEN BY PA IN TRIAGE. TESTS ORDERED.
[2021-08-22 10:56] LABS: BASOPHILS % (AUTO) 0.6 % (0-1); EOSINOPHILS % (AUTO) 0.6 % (0-6); HEMATOCRIT 46.5 % (42.0-52.0); HEMOGLOBIN 15.8 g/dl (14.0-17.9); LYMPHOCYTES # (AUTO) 1.5 X10'3 (1.1-4.8); LYMPHOCYTES % (AUTO) 21.9 % (21-51); MEAN CORPUSCULAR HEMOGLOBIN 31.1 PG (27.0-31.0); MEAN CORPUSCULAR HGB CONC 34.1 g/dL (33.0-36.5); MEAN CORPUSCULAR VOLUME 91.3 FL (78-98); MEAN PLATELET VOLUME 8.9 FL (7.4-10.4); MONOCYTES # (AUTO) 0.6 X10'3 (0-0.9); MONOCYTES % (AUTO) 8.6 % (2-12); NEUTROPHILS # (AUTO) 4.7 X10'3 (1.8-7.7); NEUTROPHILS % (AUTO) 68.3 % (42-75); PLATELET COUNT 190 X10'3 (140-440); RED BLOOD COUNT 5.09 X10'6 (4.70-6.10); WHITE BLOOD COUNT 6.9 X10'3 (4.5-11.0)
[2021-08-22 11:05] LABS: ANION GAP 10 (8-16); BLOOD UREA NITROGEN 11 MG/DL (7-18); CHLORIDE 107 MMOL/L (99-107); CREATININE 1.09 MG/DL (0.60-1.10); GLUCOSE 97 MG/DL (70-104); POTASSIUM 4.3 MMOL/L (3.5-5.1); SODIUM 144 MMOL/L (135-145); TOTAL CARBON DIOXIDE 26.7 MMOL/L (24-32)
[2021-08-22 11:06] LABS: ALANINE AMINOTRANSFERASE 42 U/L (12-78); ALBUMIN 4.2 G/DL (3.4-5.0); ALBUMIN/GLOBULIN RATIO 1.3 (1.1-1.5); ALKALINE PHOSPHATASE 60 IU/L (46-116); ASPARTATE AMINO TRANSFERASE 21 U/L (10-37); BILIRUBIN,TOTAL 0.7 MG/DL (0.1-1.0); BUN/CREATININE RATIO 10.1 (5.4-32.0); CALCIUM 8.9 MG/DL (8.5-10.1); LIPASE 68 U/L (73-393); TOTAL PROTEIN 7.4 G/DL (6.4-8.2); eGFR 77 ML/MIN
[2021-08-22 13:27] LABS: HEMATOCRIT 47.8 % (42.0-52.0); HEMOGLOBIN 16.2 g/dl (14.0-17.9); MEAN CORPUSCULAR HEMOGLOBIN 31.1 PG (27.0-31.0); MEAN CORPUSCULAR HGB CONC 33.9 g/dL (33.0-36.5); MEAN CORPUSCULAR VOLUME 91.9 FL (78-98); MEAN PLATELET VOLUME 8.9 FL (7.4-10.4); PLATELET COUNT 204 X10'3 (140-440); RED CELL DISTRIBUTION WIDTH 14.3 % (11.5-14.5); WHITE BLOOD COUNT 7.9 X10'3 (4.5-11.0)
[2021-08-22] MEDS ORDERED: OMEP40CA21 PO (14:32)
[2021-08-22] MEDS ORDERED: ONDA4TAB6 PO (14:32)
== END 2021-08-22 14:52 | disposition home or self-care (01) ==
LOC: ER 09:30
DX: K92.0 Hematemesis (principal); G89.29 Other chronic pain; F15.90 Other stimulant use, unspecified, uncomplicated; Z87.11 Personal history of peptic ulcer disease; Z72.89 Other problems related to lifestyle; Z88.0 Allergy status to penicillin; Z79.899 Other long term (current) drug therapy
CPT/HCPCS: 36415; 80053; 83690; 85025; 85027; 99283

== ENCOUNTER 2025-02-19 08:11 | Emergency (ER) | payer MEDICAID, MEDICARE, OTHER ==
[~2025-02-19] VITALS: Ht 180.3 cm; Wt 90.9 kg
[~2025-02-19 08:11] MED LIST changes: +ONDA4TAB6 PO
[2025-02-19] MEDS ORDERED: ketorolac trometh 15mg/ml vial 15 MG/ML ML IM ONE (08:35)
--- NOTE | 2025-02-19 08:37 | Physician Documentation ---
History of Present Illness ~ Chief Complaint: Back Pain Stated Complaint: BACKPAIN Time Seen by MD: 08:25 Primary Medical Doctor: N/A HPI 39-year-old male presenting with acute onset right-sided lower back pain that began approximately 30 minutes prior to arrival. Patient was at work and went to lift something heavy when he suddenly felt a sharp pain over the right side of his lower back. He immediately had to drop when he was lifting and he feels like his back gave out. Pain radiates from the back down the back of the right leg. Worsens with any type of movement. Denies any numbness, tingling or any other associated symptoms. Denies any saddle anesthesia or bowel or bladder dysfunction. Medication Reconciliation Allergies: Coded Allergies: Penicillins (Unverified Allergy, Intermediate, RASH, 04/24/20) Scheduled Ondansetron Hcl (Zofran), 1 TAB PO Q8H Miscellaneous Medications Home Med List (No Home Medications), (Reported) Past Medical History Past Medical History: Peptic Ulcer Disease, Chronic Back Pain, Anxiety Past Surgical History: orthopedic surgeries Alcohol Use: Occasionally Drug Use: methamphetamine Lives In: Home Review of Systems All Other Systems at this time: Reviewed and Negative Physical Exam Physical Exam Vital Signs: Temperature: 98.2, Source: Temporal, Heart Rate: 88, Respiratory Rate: 18, BP: 136/82, Pulse Oximetry: 98, Weight: 90.910 General Appearance I have reviewed the triage vitals. CONST: Well developed and well nourished. In no acute distress HENT: Head Atraumatic EYES: Pupils are equal, round and reactive to light. Normal conjunctiva NECK: Normal range of motion. Supple. CARDIO: Normal rate and regular rhythm. No murmurs, rubs, or gallops. S1, S2. PULM/CHEST: No respiratory distress. Lungs clear to auscultation. No wheeze ABD: Soft and nontender. Nondistended. Bowel sounds normal. No guarding. : Exam deferred MSK: No edema. No deformity. Normal appearance of the lower back. Any attempted flexion or extension of the spine causes significant pain. Flexion of the hip causes significant pain in the lower back. Straight leg raise is positive on the right. NEURO: Alert and oriented to person, place and time. Moving all extremities SKIN: Warm and dry. PSYCH: Normal mood and affect. Good eye contact. Progress Results/Orders Results/Orders Orders - ISRAEL ROMO MD Ct Lumbar Spine (02/19/25 08:32) Completed Orders - ISRAEL ROMO MD Ketorolac Trometh 15mg/Ml Vial (Toradol (02/19/25 08:35) Acetaminophen 325mg Tablet (Tylenol Tabl (02/19/25 08:35) Ct Lumbar Spine (02/19/25 08:32) Ketorolac Trometh 30mg/Ml Vial (Toradol (02/19/25 08:40) Medications Received in ER Medications (Trade) Dose Ordered Sig/Carol Route PRN Reason Start Time Stop Time Status Last Admin Dose Admin (Tylenol tablet) 1,000 mg ONCE ONCE PO 02/19/25 08:35 02/19/25 08:36 DC 02/19/25 09:12 1,000 MG (Toradol inj. 30mg/ml) 60 mg ONCE ONCE IM 02/19/25 08:40 02/19/25 08:41 DC 02/19/25 09:13 60 MG Vital Signs 02/19/25 02/19/25 02/19/25 08:13 09:13 09:19 Temp 98.2 98.1 Pulse 88 88 Resp 18 18 18 B/P (MAP) 136/82 141/95 (110) Pulse Ox 98 98 O2 Flow Rate 0 EKG/XRAY/CT/US/VASC/MRI CT : Impression CLINICAL INDICATION: trauma TECHNIQUE: CT of the lumbar spine was performed without intravenous contrast. Sagittal and coronal reformatted images are provided. All CT scans at this medical facility are performed using dose modulation techniques as appropriate to a performed exam including the following: Automated exposure control was utilized; adjustment of the MA and/or KV according to patient size; and use of iterative reconstruction technique. COMPARISON: None CT Dose: CTDI volume is 26.8 mGy. Dose-length product is 797.2 mGy*cm FINDINGS: The alignment and curvature of the lumbar spine are preserved. The vertebral bodies are normal in height. The intervertebral disc spaces are maintained. There is no evidence of spinal canal or neural foraminal stenosis. The prevertebral soft tissues are unremarkable. Paraspinal muscles are also within normal limits. IMPRESSION: 1. No fracture or subluxation in the lumbar spine. Medical Decision Making Differential Diagnosis 39-year-old male presenting with a lower back injury which is likely secondary to a lumbar strain that he sustained while lifting something heavy. Imaging of the lower back is unremarkable for any fractures or disc herniations. The patient was medicated with IM Toradol 30 mg and acetaminophen 975 mg p.o. with good improvement of symptoms. I advised the patient on the findings. Recommended that he go on light duty for the next week to week and a half and avoid any heavy lifting. Patient needs follow up with occupational health or his primary care physician within the next 1-2 weeks. I will prescribe him some ibuprofen as well as cyclobenzaprine that he can take for symptomatic relief. Return to the ED with any acutely worsening symptoms. Departure Disposition: 01 HOME / SELF CARE / HOMELESS Impression: Primary Impression: Strain of lumbar region Condition: Improved Referrals: NO PRIMARY CARE PROVIDER (PCP) Prescriptions Cyclobenzaprine HCl (Cyclobenzaprine HCl) 10 Mg Tablet 1 TAB PO Q8H for muscle spasms for 10 Days, #30 TAB Prov: ISRAEL ROMO MD 02/19/25 Ibuprofen (Ibuprofen) 800 Mg Tablet 1 TAB PO Q8H for pain for 10 Days, #30 TAB 0 Refills Prov: ISRAEL ROMO MD 02/19/25 Signature Scribe Signature: 1 Attestation: 1 ISRAEL ROMO MD February 19, 2025 08:37
--- NOTE | 2025-02-19 09:01 | RADIOLOGY REPORT ---
CLINICAL INDICATION: trauma TECHNIQUE: CT of the lumbar spine was performed without intravenous contrast. Sagittal and coronal re formatted images are provided. All CT scans at this medical facility are performed using dose modula tion techniques as appropriate to a performed exam including the following: Automated exposure contro l was utilized; adjustment of the MA and/or KV according to patient size; and use of iterative recons truction technique. COMPARISON: None CT Dose: CTDI volume is 26.8 mGy. Dose-length product is 797.2 mGy*cm FINDINGS: The alignment and curvature of the lumbar spine are preserved. The vertebral bodies are normal in hei ght. The intervertebral disc spaces are maintained. There is no evidence of spinal canal or neural fo raminal stenosis. The prevertebral soft tissues are unremarkable. Paraspinal muscles are also within normal limits. IMPRESSION: 1. No fracture or subluxation in the lumbar spine.
[2025-02-19] MEDS: acetaminophen 325mg tablet PO ONE (09:12)
[2025-02-19] MEDS: ketorolac trometh 30MG/ML vial 30 MG/ML VIAL IM ONE (09:13)
[2025-02-19 09:19] VITALS: BP 141/95; PULSE 88; RESP 18; TEMP 98.1; O2SAT 98
[2025-02-19] MEDS ORDERED: CYCL-394 PO (11:16)
[2025-02-19] MEDS ORDERED: IBUP-1986 PO (11:16)
== END 2025-02-19 11:37 | disposition home or self-care (01) ==
LOC: ER 08:12
DX: S39.012A Strain of muscle, fascia and tendon of lower back, initial encounter (principal); Z88.0 Allergy status to penicillin; Z88.8 Allergy status to other drugs, medicaments and biological substances; F15.90 Other stimulant use, unspecified, uncomplicated; F41.9 Anxiety disorder, unspecified; X58.XXXA Exposure to other specified factors, initial encounter; Y93.89 Activity, other specified; Y92.89 Other specified places as the place of occurrence of the external cause; Y99.8 Other external cause status
CPT/HCPCS: 72131; 96372; 99285; J1885

== ENCOUNTER 2025-03-16 11:23 | Outpatient (CLI) | payer BC, MEDICAID ==
[~2025-03-16 11:23] MED LIST changes: +IBUP-1986 PO
--- NOTE | 2025-03-16 13:04 | RADIOLOGY REPORT ---
EXAM: DI LUMBAR SPINE COMPLTE INDICATION: LUMBAGO TECHNIQUE: 5 views of the lumbar spine COMPARISON: None FINDINGS: No radiographic evidence of an acute osseous abnormality. There is no acute fracture, osse ous malalignment, or aggressive focal osseous lesion. There is no radiographically apparent joint spa ce narrowing. The vertebral bodies, intervertebral disc spaces, facet joints, and paraspinal soft tis sues appear normal. Relative bony foraminal narrowing at L3-4, L4-5, L5-S1 IMPRESSION: 1. No radiographic evidence of an acute lumbar spine fracture or dislocation.
== END 2025-03-16 23:59 | disposition home or self-care (01) ==
LOC: RAD 11:23
PROVIDERS: ATTEND Nurse Practitioner Family
DX: M48.07 Spinal stenosis, lumbosacral region (principal); M54.40 Lumbago with sciatica, unspecified side
CPT/HCPCS: 72110

== ENCOUNTER 2025-03-16 11:27 | Outpatient (CLI) | payer MEDICARE, MEDICAID ==
--- NOTE | 2025-03-16 13:51 | ELECTROCARDIOGRAPH REPORT ---
[facility] Test Date: 2025-03-16 Test Time: 11:57:42 Pat Name: JULISSA WHARTON Department: PRE/OP CARDIOLOGY Room: Gender: M Dispatcher Maintenance Service: ALISON : 1985 Requested By: MI APONTE Order Number: [id number] Reading MD: Measurements Intervals [place] Rate: 77 P: 58 OR: 141 QRS: 0 QRSD: 109 T: 50 QT: 388 QTc: 440 Interpretive Statements Sinus rhythm Please click the below link to view image of tracing.
== END 2025-03-16 23:59 | disposition home or self-care (01) ==
LOC: RAD 11:27
PROVIDERS: ATTEND Nurse Practitioner Psychiatric/Mental Health
DX: F25.0 Schizoaffective disorder, bipolar type (principal); Z79.899 Other long term (current) drug therapy
CPT/HCPCS: 93005